=== PATIENT | female | born 2000 | race Asian ===

== ENCOUNTER 2024-02-14 08:52 | Emergency (ER) | payer MEDICAID, OTHER, SELFPAY ==
--- NOTE | ~2024-02-14 | US_ITS ---
Indication: Positive EXAMINATION: Obstetrical ultrasound less than 14 weeks. Transvaginal imaging submitted by the raschel knitting machine operator. There is a single live intrauterine . The crown-rump length is 1.9 cm. This would correlate to a 8 week 4 day . There is a yolk sac. Positive heart rate 174 bpm. The right ovary is 3.6 x 1.9 x 2.2 cm. Likely complex cyst associated versus a small solid lesion measuring 1.4 x 1.3 cm. This could represent corpus spleen. No internal vascularity. Attention to follow-up. The left ovary is 3.2 x 1.7 x 1.4 cm. No free fluid in the cul-de-sac. US/US OB <= 14 weeks fetus IMPRESSION: Single live intrauterine . 8 weeks 4 days by ultrasound criteria.
[2024-02-14 09:06] VITALS: BP 119/83; PULSE 96; RESP 16; TEMP 36.8; O2SAT 99; BMI 21.0
[2024-02-14 09:27] LABS: MANUAL DIFF FLAG NO
[2024-02-14 09:29] LABS: Basophils Percent Auto 0.4 % (0-2); Eosinophils Absolute Auto 0.1 X10*3/uL (0.0-0.4); Eosinophils Percent Auto 0.9 % (0-4); Hematocrit 36.1 % (37.0-47.0); Imm Gran Abs Auto 0.02 X10*3/uL (0.00-0.03); Imm Gran Pct Auto 0.3 % (0.0-0.4); Lymphocytes Absolute Auto 2.6 X10*3/uL (1.2-4.9); Lymphocytes Percent Auto 33.1 % (20-40); Mean Corpuscular HGB Conc 33.2 g/dl (31.0-35.0); Mean Corpuscular Volume 78.1 fL (80.0-98.0); Mean Platelet Volume 11.3 fL (9.4-12.3); Monocytes Absolute Auto 0.7 X10*3/uL (0.1-1.2); Monocytes Percent Auto 8.8 % (2-11); Neutrophils Absolute Auto 4.4 x10*3/uL (2.0-8.3); Neutrophils Percent Auto 56.5 % (45-73); Platelet Count 181 X10*3/uL (160-400); Red Blood Count 4.62 X10*6/uL (4.20-5.50); Red Cell Distribution Width 14.3 % (11.0-16.0); White Blood Count 7.8 X10*3/uL (4.8-10.8)
--- NOTE | 2024-02-14 09:44 | ED.GENADULT ---
HPI - General Adult General Chief complaint: Abdominal Pain Stated complaint: stomach pain Time Seen by Provider: 02/14/24 09:33 Source: patient Mode of arrival: ambulatory Limitations: no limitations History of Present Illness ED Provider: shannan PITT narrative: Patient is a 24-year-old female presenting to the emergency department with complaint of nausea, vomiting, lower abdominal cramping and increased sensitivity to scents. Reports LMP began on 12/06/23. States menses are typically regular. Feels abdominal cramping is worse on right side. Denies any vaginal bleeding or other abnormal vaginal discharge. Denies urinary urgency, dysuria, or hematuria. MD complaint: nausea and vomiting Onset (ago): day(s) Location: abdomen Severity: mild Quality: aching Pain Consistency: colicky Associated symptoms: nausea/vomiting Treatments prior to arrival: none Related Data Previous Rx's ?Medication ?Instructions ?Recorded vitamins no.144-folic 2 tab PO DAILY #30 tabs 02/14/24 acid 400 mcg chewable tablet () Allergies Allergy/AdvReac Type Severity Reaction Status Date / Time No Known Allergies Allergy Verified 02/14/24 09:06 Review of Systems Review of Systems: As per HPI. Yes all other systems are reviewed and are negative Constitutional: Constitutional: Reports as per HPI [facility] Social History Social History Smoked in Last 30 Days: No Use of substances other than those prescribed or required for medical reasons: No Advance Directives: No Physical Exam ED Vital Signs: Vital Signs - 24 hr 02/14/24 09:06 02/14/24 11:48 Temperature 98.2 F 98.1 F Pulse Rate 96 89 Respiratory Rate 16 14 Blood Pressure 119/83 105/62 Pulse Oximetry 99 99 Oxygen Delivery Method Room Air Room Air BMI result Body Mass Index 21.0 Vital signs have been reviewed and appear to be correct. Blood pressure normal. Heart rate normal. Respiratory rate normal. Temperature normal. Oxygen saturation normal. Const General: cooperative, healthy appearing and no acute distress Orientation/consciousness: oriented to person, oriented to place, oriented to time and patient oriented x3 Limitations: no limitations HENMT Head: Yes normocephalic and Yes atraumatic Ears: external ears normal General nose exam: Normal external nose present Face and sinus: Yes face symmetric Mouth: oropharynx normal and moist mucous membranes Throat: Yes uvula midline Eyes Pupils: Equal, round and reactive pupils present Neck Neck: Yes normal visual inspection and Yes supple Resp Effort & Inspection: normal respiratory effort and able to speak in complete sentences Auscultation: clear to auscultation bilaterally Cardio Rate: regular rate Rhythm: regular rhythm Heart sounds: S1 normal heart sound present and S2 normal heart sound present GI Palpation (GI): Soft to palpation and nontender Auscultation: normoactive bowel sounds General: Yes no CVA tenderness Back/Spine/Pelvis Back: no CVA tenderness Skin General skin exam: elasticity normal and turgor normal Neuro General: oriented to person, oriented to place, oriented to time, patient oriented x3, moves all extremities, no focal motor deficits and CN's II-XI intact bilaterally Cranial nerves: Yes Equal, round and reactive pupils present Cognition (Neuro): normal cognition Extrem General: Yes full ROM, Yes no pedal edema and Yes no calf tenderness Psych Mental Status: mental status grossly normal Affect: normal affect Thought process: Normal thought process present Medical Decision Making Medical Decision Making [facility] Narrative: Patient is a 24-year-old female presenting to the emergency department with complaint of nausea, vomiting, lower abdominal cramping and increased sensitivity to scents. On exam patient is awake, A+Ox3, VS WNL, afebrile, normal neurological exam without focal deficits, physical exam findings as above. Given reported symptoms and physical exam findings, initial differential includes intrauterine , ectopic , UTI. No evidence of infection on urinalysis. Labs notable for HCG of [id number]. Ultrasound notable for single intrauterine with normal heart rate. My interpretation is in agreement with the radiologist's interpretation. Results discussed with patient and all questions answered. Patient does not currently have an OBGYN, will provide referrals. Prescription for vitamin sent to pharmacy. Advised patient she can use Tylenol as needed for fever or discomfort to avoid ibuprofen. Return precautions discussed at bedside. Patient verbalized understanding of and agreement with plan. Differential Diagnosis Differential Diagnoses: The differential diagnosis associated with the presentation includes As per [facility] Admission/Observation Consideration of admission/observation: Escalation of care including admission/observation considered Patient would have been admitted to the hospital had their work up had any findings where hospital admission was appropriate and their clinical presentation warranted hospital admission. Lab Data [facility] Lab Attestation statement: I reviewed the patient's lab results. As per [facility] 02/14/24 09:23 02/14/24 09:47 Labs: Lab Results 02/14/24 02/14/24 Range/Units 09:23 09:47 WBC 7.8 (4.8-10.8) X10*3/uL RBC 4.62 (4.20-5.50) X10*6/uL Hgb 12.0 (12.0-16.0) g/dl Hct 36.1 L (37.0-47.0) % MCV 78.1 L (80.0-98.0) fL MCH 26.0 L (27.0-33.0) pg MCHC 33.2 (31.0-35.0) g/dl RDW 14.3 (11.0-16.0) % Plt Count 181 (160-400) X10*3/uL MPV 11.3 (9.4-12.3) fL Immature Gran % (Auto) 0.3 (0.0-0.4) % Neut % (Auto) 56.5 (45-73) % Lymph % (Auto) 33.1 (20-40) % [place] % (Auto) 8.8 (2-11) % Eos % (Auto) 0.9 (0-4) % Baso % (Auto) 0.4 (0-2) % Lymph # (Auto) 2.6 (1.2-4.9) X10*3/uL [place] # (Auto) 0.7 (0.1-1.2) X10*3/uL Eos # (Auto) 0.1 (0.0-0.4) X10*3/uL Baso # (Auto) 0.0 (0.0-0.2) X10*3/uL Abs Immat Gran (auto) 0.02 (0.00-0.03) X10*3/uL Absolute Neuts (auto) 4.4 (2.0-8.3) x10*3/uL Absolute Nucleated RBC 0.000 (0.0-0.012) X10*3/uL Nucleated RBC % (auto) 0.0 (0.0-0.2) /100WBC Sodium 135 (135-145) mmol/L Potassium 3.5 (3.3-5.1) mmol/L Chloride 104 (96-108) mmol/L Carbon Dioxide 22 (22-29) mmol/L Anion Gap 13 (12-20) BUN 6 L (9-16) mg/dL Creatinine 0.61 (0.5-1.4) mg/dL Estim Creat Clear Calc 132.4 Estimated GFR > 60 Random Glucose 110 (60-115) mg/dL Calcium 8.8 (8.4-10.2) mg/dL Lipase 27 (8-78) U/L Beta HCG, Quant 107836 mIU/mL Urine Color Yellow Urine Appearance Clear Urine pH 6.5 (5.0-9.0) Ur Specific [place] <= 1.005 (1.005-1.025) Urine Protein Negative (Neg-Trace) mg/dL Urine Glucose (UA) Negative (Negative) mg/dL Urine Ketones Negative (Negative) mg/dL Urine Blood Negative (Negative) Urine Nitrite Negative (Negative) Ur Leukocyte Esterase Negative (Negative) Urine Test POSITIVE H (NEGATIVE) Influenza Type A (PCR) NEGATIVE (Negative) Influenza Type B (PCR) NEGATIVE (Negative) RSV RNA Qual (PCR) NEGATIVE (Negative) SARS-CoV-2 RNA (RT-PCR) NEGATIVE (Negative) Independent Interpretation I performed an independent interpretation of an: Ultrasound Interpretation: single live intrauterine on ultrasound Radiology Impression Discussion of test interpretation with radiology: I have reviewed the radiologist's reading. Radiologist Impression: US/US OB <= 14 weeks fetus IMPRESSION: Single live intrauterine . 8 weeks 4 days by ultrasound criteria. External Record Review External record reviewed: Inpatient record, Office record and Outpatient record Prescription Management I considered prescription management with: Other Discharge Plan Discharge Clinical Impression: Patient Disposition: Home, Self-Care Instructions: (ED), at 7 to 10 Weeks (ED), at 11 to 14 Weeks (ED) Additional Instructions: You were evaluated in the emergency department today for abdominal pain and nausea. Your test was positive and your ultrasound showed an intrauterine . You will need to follow up with an OB/GN as soon as possible for ongoing care. Call their office to schedule an appointment. You are being prescribed a daily vitamin. You can take Tylenol (acetaminophen) if needed for fever or pain, do not take any ibuprofen. Return to the emergency department if you develop severe abdominal pain, persistent vomiting, vaginal bleeding or any other concerning symptoms. Prescriptions: New 400 mcg tablet,chewable 2 tab PO DAILY Qty: 30 0RF Referrals: [facility] [Provider Group] [facility]NA[facility] [Provider Group] Print Language: Guamanian
--- NOTE | 2024-02-14 09:59 | PC.NURSE ---
a&ox4. vss and up to date. pt presents to the ED w/ lower suprapubic abd pain radiating to lower back w/ associated nausea, vomiting, decreased PO intake, fever/chills x the past few days. pt also reports possible concern for - LMP in December. did not take test at home. pt denies any urinary sx. 20gIV placed in the right AC - labs obtained/sent to lab. urine sent to the lab as well. no sob/wob noted. respirations even/unlabored. partner bedside for support. plan of care ongoing. call calderon placed within reach.
[2024-02-14 10:00] LABS: Appearance Urine Clear; Color Urine Yellow; Glucose Urine UA Negative (Negative); Leukocyte Esterase Urine Negative (Negative); Nitrite Urine Negative (Negative); PH 6.5 (5.0-9.0); Specific Gravity - Urine <= 1.005 (1.005-1.025); Urine Blood Negative (Negative); Urine Ketones Negative (Negative); Urine Protein Negative (Neg-Trace)
[2024-02-14 10:01] LABS: UPreg QC Valid YES; Urine Pregnancy POSITIVE (NEGATIVE)
[2024-02-14 10:10] LABS: Lipase 27 U/L (8-78)
[2024-02-14 10:21] LABS: Anion Gap 13 (12-20); Blood Urea Nitrogen 6 mg/dL (9-16); Calcium 8.8 mg/dL (8.4-10.2); Carbon Dioxide 22 mmol/L (22-29); Chloride 104 mmol/L (96-108); Creatinine Clr Calc Pharmacy 132.4; Estimated Glomerular Filt Rate > 60; Glucose Random 110 mg/dL (60-115); Potassium 3.5 mmol/L (3.3-5.1); Sodium 135 mmol/L (135-145)
[2024-02-14 10:39] LABS: Influenza A PCR NEGATIVE (Negative); Influenza B PCR NEGATIVE (Negative); Resp Syncy Virus RNA Qual PCR NEGATIVE (Negative); SARS COV2 PCR INHOUSE NEGATIVE (Negative)
[2024-02-14 10:50] LABS: HCG Quantitative 128639 mIU/mL
[2024-02-14 11:48] VITALS: BP 105/62; PULSE 89; RESP 14; TEMP 36.7; O2SAT 99
[2024-02-14 13:43] VITALS: BP 108/62; PULSE 89; RESP 16; TEMP 36.7; O2SAT 100
== END 2024-02-14 13:47 | disposition home or self-care (01) ==
PROVIDERS: Emergency Provider Emergency Medicine
DX: O26.91 Pregnancy related conditions, unspecified, first trimester (principal); R25.2 Cramp and spasm; R11.2 Nausea with vomiting, unspecified; R10.30 Lower abdominal pain, unspecified; Z03.818 Encounter for observation for suspected exposure to other biological agents ruled out; Z3A.01 Less than 8 weeks gestation of pregnancy; Z79.899 Other long term (current) drug therapy
CPT/HCPCS: 0241U; 36415; 76801; 80048; 81003; 81025; 83690; 84702; 85025; 99284